=== PATIENT | female | born 1995 | race Caucasian/White ===

== ENCOUNTER 2022-01-12 17:43 | Outpatient (RCR) | payer OTHER, SELFPAY ==
[2022-01-12 18:45] VITALS: BP 106/68
== END 2022-03-10 10:05 | disposition home or self-care (01) ==
LOC: ANHOBOP 17:43
PROVIDERS: Visit Provider Student in an Organized Health Care Education/Training Program
DX: O36.8190 Decreased fetal movements, unspecified trimester, not applicable or unspecified (principal); Z3A.30 30 weeks gestation of pregnancy
CPT/HCPCS: 59025

== ENCOUNTER 2022-02-01 09:20 | Outpatient (CLI) | payer OTHER, SELFPAY ==
[2022-02-01 09:42] VITALS: BP 113/69; PULSE 106
[2022-02-01 09:45] VITALS: BP 122/74; PULSE 109
[2022-02-01 09:51] VITALS: BP 122/74; PULSE 109
[2022-02-01 10:01] VITALS: BP 107/74; PULSE 100
--- NOTE | 2022-02-01 10:14 | PC.NURSE ---
Called Dr. Washburn with Pt negative ROM plus results, reactive NST, and no contractions per patient/TOCO
--- NOTE | 2022-02-01 15:19 | PM.OBTRLD ---
OB - Triage/Final Diagnosis Visit Information Date of evaluation: 02/01/22 Reason for evaluation: threatened labor Comments/Additional reasons for admission: I have assessed the risk for this patient, Yumiko Romero, and determined that she would benefit from observation care. Evaluation Vital signs: Vital Signs - 24 hr 02/01/22 09:42 02/01/22 09:45 02/01/22 10:01 Pulse Rate 106 H 109 H 100 Blood Pressure 113/69 122/74 107/74 02/01/22 09:51 Pulse Rate 109 H Blood Pressure 122/74
== END 2022-02-01 10:20 | disposition home or self-care (01) ==
LOC: ANHOBOP 09:25 → ANHOBPP 09:25
PROVIDERS: Visit Provider Student in an Organized Health Care Education/Training Program
DX: O42.90 Premature rupture of membranes, unspecified as to length of time between rupture and onset of labor, unspecified weeks of gestation (principal); Z3A.00 Weeks of gestation of pregnancy not specified
CPT/HCPCS: 59025; 84112; 99199

== ENCOUNTER 2022-02-11 18:32 | Observation (INO) | payer OTHER, SELFPAY ==
[2022-02-11 19:04] VITALS: BP 119/66; PULSE 108
[2022-02-11 19:12] VITALS: BMI 24.5
[2022-02-11 19:12] LABS: Appearance Urine Cloudy (Clear); Bilirubin Urine 1+ (Negative); Blood Urine Negative (Negative); Color Urine Yellow (Yellow); Glucose Urine UA Negative (Negative); Ketones Urine Trace mg/dL (Negative); Leukocyte Esterase Ur 1+ LEU/UL (Negative); Nitrate Urine Negative (Negative); Protein Urine Negative (Negative)
--- NOTE | 2022-02-11 19:12 | OBADM ---
This patient, Yumiko Romero, admitted to the OB room OB Post 115 for observation. Patient/family oriented to hospital policies and general routines including ID bracelet, bed and alarms, visiting hours, pain management, procedures, bathroom and other care routines, personal items, smoking policy, room service/diet, and visiting hours. Patient/Family are encouraged to report perceived risks to care and to ask questions if they do not understand what they are told or what they should do.
[2022-02-11 19:23] LABS: Amorphous Sediment Urine Few; Mucus Urine Rare /lpf; RBC Urine 0-2 /hpf (0-2); Squamous Epithelial Cell Urine Many /hpf (Few); WBC Urine 0-3 /hpf
[2022-02-11 19:24] LABS: Add Urine Microscopic? YES
--- NOTE | 2022-03-03 14:48 | PM.OBTRLD ---
OB - Triage/Final Diagnosis Visit Information Comments/Additional reasons for admission: I have assessed the risk for this patient, Yumiko Romero, and determined that she would benefit from observation care. Evaluation Laboratory results: Laboratory Tests 02/11/22 18:57 Urine Color Yellow Urine Appearance Cloudy H Urine pH 7.0 Ur Specific [place] 1.020 Urine Protein Negative Urine Glucose (UA) Negative Urine Ketones Trace Ur Blood (Man) Negative Urine Nitrate Negative Urine Bilirubin 1+ H Urine Urobilinogen 1.0 Leukocyte Esterase Rfl 1+ H Urine RBC 0-2 Urine WBC 0-3 Ur Squamous Epith Cells Many H Amorphous Sediment Few H Urine Mucus Rare Final Diagnosis (1) False labor: Code(s): O47.9 - False labor, unspecified Status: Acute
== END 2022-02-11 20:06 | disposition home or self-care (01) ==
LOC: ANHOBPP 02-12 14:05
PROVIDERS: Admitting Provider Obstetrics & Gynecology; Visit Provider Obstetrics & Gynecology
DX: O47.9 False labor, unspecified (principal); Z3A.00 Weeks of gestation of pregnancy not specified
CPT/HCPCS: 81001; G0378; G0379

== ENCOUNTER 2022-02-25 07:54 | Inpatient (IN) | payer OTHER, SELFPAY ==
[2022-02-25] VITALS (17 sets, daily range): BP systolic 103–122; BP diastolic 54–108; PULSE 85–104; RESP 18; TEMP 36.7–37.1; O2SAT 98–99; BMI 25.4
[2022-02-25 08:55] LABS: Basophils Absolute Auto 0.1 K/mm3 (0.0-0.1); Basophils Percent Auto 0.7 % (0.2-1.2); Eosinophils Absolute Auto 0.2 K/mm3 (0-0.3); Eosinophils Percent Auto 1.3 % (0-4.4); Hematocrit 32.2 % (37.0-47.0); Hemoglobin 10.8 g/dL (12.0-15.0); Immature Granulocyte Absolute 0.22 K/mm3 (0.00-0.031); Immature Granulocyte Percent A 1.5 % (0-0.5); Lymphocytes Percent Auto 16.8 % (18.3-44.2); Mean Corpuscular HGB Conc 33.5 g/dl (32-36); Mean Corpuscular Hemoglobin 31.1 pg (26-34); Mean Corpuscular Volume 92.8 fl (80-100); Mean Platelet Volume 10.8 fl (7.4-10.4); Monocytes Absolute Auto 1.3 K/mm3 (0.1-0.6); Monocytes Percent Auto 8.8 % (2.6-8.5); Neutrophils Absolute Auto 10.6 K/mm3 (1.3-6.7); Neutrophils Percent Auto 70.9 % (45.5-73.1); Platelet Count Result 308 k/mm3 (150-375); Red Blood Count 3.47 M/mm3 (4.2-5.4); White Blood Count 14.9 K/mm3 (4.5-10.0)
--- NOTE | 2022-02-25 09:29 | LDADM ---
This patient, Yumiko Romero, was admitted to Labor/Delivery/Recovery 108 on 02/25/22 at 07:54. Plans for labor, pain management and were discussed with patient. Patient/family oriented to hospital policies and general routines including ID bracelet, bed and alarms, visiting hours, pain management, procedures, bathroom and other care routines, personal items, smoking policy, room service/diet and guest tray routines, security routines, and visiting hours. Patient/Family are encouraged to report perceived risks to care and to ask questions if they do not understand what they are told or what they should do. See OBIX for further documentation.
--- NOTE | 2022-02-25 10:55 | WPDANESEPP ---
Anes - Eval Pre Procedure Procedure: Labor epidural Date/Time: 02/25/22 10:55 Surgeon: Damon Valencia Preop Diagnosis: Labor Pain Pre Op Diagnosis: labor pain Patient Data Age: 26 Gender: F Height: 1.6 m Weight: 65 kg Last Vital Signs Pulse 92 02/25/22 10:19 BP 113/75 02/25/22 10:19 O2 Del Method Room Air 02/25/22 09:29 Allergies Allergy/AdvReac Type Severity Reaction Status Date / Time zolpidem [From Ambien] Allergy Difficulty Verified 02/25/22 09:41 Breathing Home Medications Medication Instructions Recorded Confirmed Type folic acid 1 mg tablet 1 mg PO DAILY 02/01/22 02/01/22 History vit#24-iron amino acid 1 tablet PO DAILY 02/01/22 02/01/22 History chelat-folic acid 30 mg-975 mcg tablet Laboratory Tests 02/25/22 02/25/22 02/25/22 08:43 08:43 08:43 WBC 14.9 K/mm3 H K/mm3 (4.5-10.0) RBC 3.47 M/mm3 L M/mm3 (4.2-5.4) Hgb 10.8 g/dL L g/dL (12.0-15.0) Hct 32.2 % L % (37.0-47.0) MCV 92.8 fl fl (80-100) MCH 31.1 pg pg (26-34) MCHC 33.5 g/dl g/dl (32-36) RDW 13.0 % % (11.5-14.5) Plt Count 308 k/mm3 k/mm3 (150-375) MPV 10.8 fl H fl (7.4-10.4) Immature Gran % (Auto) 1.5 % H % (0-0.5) Neut % (Auto) 70.9 % % (45.5-73.1) Lymph % (Auto) 16.8 % L % (18.3-44.2) [place] % (Auto) 8.8 % H % (2.6-8.5) Eos % (Auto) 1.3 % % (0-4.4) Baso % (Auto) 0.7 % % (0.2-1.2) Lymph # (Auto) 2.50 K/mm3 K/mm3 (0.9-3.2) [place] # (Auto) 1.3 K/mm3 H K/mm3 (0.1-0.6) Eos # (Auto) 0.2 K/mm3 K/mm3 (0-0.3) Baso # (Auto) 0.1 K/mm3 K/mm3 (0.0-0.1) Abs Immat Gran (auto) 0.22 K/mm3 H K/mm3 (0.00-0.031) Absolute Neuts (auto) 10.6 K/mm3 H K/mm3 (1.3-6.7) Absolute Nucleated RBC 0.0 K/mm3 K/mm3 (0.0-0.012) Nucleated RBC % 0.0 % % (0.0-0.2) RPR Pending Blood Type A Positive Antibody Screen Negative Patient hx anesthesia problems: none Family hx anesthesia problems: none Results Review: All pre-operative results and documents have been reviewed as part of the pre-operative evaluation. [facility] Social History Social History Smoking packs per day: 1 Smoking cigarettes per day: 20.0 Years smoked: 14 Smoking pack-years: 14.00 Smoking status: Current every day smoker Tobacco type: cigarettes Second hand tobacco smoke exposure: Yes Substance use: never Spiritual care concerns: No Exam Day of Procedure 02/25/22 10:55 Patient weight: normal Heart: regular rate and rhythm Lungs: clear to auscultation Airway: Mallampati scale class II Neurological: alert and oriented
--- NOTE | 2022-02-25 11:43 | P.HP_ITS ---
H&P: HPI History of Present Illness Date/Time: 02/25/22 11:43 Chief Complaint: Rupture membranes at term Narrative: 26-year-old 5 para 2 whose last menstrual is pulled away 921, EDC is 03/17/2022. Who was 1st seen by me at 30 weeks gestation presents at 37 weeks gestation with spontaneous rupture membranes prior to admission. She has a history of an ectopic and 2 miscarriages. In 2 early deliveries. She is negative for group B strep PMFSH Social History Social History Smoking packs per day: 1 Smoking cigarettes per day: 20.0 Years smoked: 14 Smoking pack-years: 14.00 Smoking status: Current every day smoker Tobacco type: cigarettes Second hand tobacco smoke exposure: Yes Substance use: never Spiritual care concerns: No Meds Home Medications and Allergies Home Medications Medication Instructions Recorded Confirmed Type folic acid 1 mg tablet 1 mg PO DAILY 02/01/22 02/01/22 History vit#24-iron amino acid 1 tablet PO DAILY 02/01/22 02/01/22 History chelat-folic acid 30 mg-975 mcg tablet Allergies Allergy/AdvReac Type Severity Reaction Status Date / Time zolpidem [From Ambien] Allergy Difficulty Verified 02/25/22 09:41 Breathing Vital Signs Vital Signs - 24 hr 02/25/22 10:19 02/25/22 09:29 Pulse Rate 92 Blood Pressure 113/75 Oxygen Delivery Room Air Exam Const: General: cooperative and healthy appearing Nutritional Appearance: average body habitus Orientation/consciousness: oriented to person, oriented to place and oriented to time Chest: Chest palpation & inspection: normal inspection of the chest Resp: Effort & Inspection: normal respiratory effort Cardio: Rate: regular rate Rhythm: regular rhythm Heart sounds: S1 normal heart sound present and S2 normal heart sound present GI: Inspection: normal to inspection : External Female Exam: normal external appearance Speculum Exam - Vagina: normal appearance of the vagina and other ( copious clear fluid present) Speculum Exam - Cervix: Cervical os closed ( cervix 4/80/1. FHTs were reass uring with regular contractions) H&P: Results Labs Labs: Short CBC 02/25/22 Range/Units 08:43 WBC 14.9 H (4.5-10.0) K/mm3 Hgb 10.8 L (12.0-15.0) g/dL Hct 32.2 L (37.0-47.0) % Plt Count 308 (150-375) k/mm3 Assessment and Plan Assessment and plan (1) Term : Code(s): Z34.90 - Encounter for supervision of normal , unspecified, unspecified trimester Status: Acute Plan spontaneous vaginal delivery is expected. She declines an epidural
[2022-02-25] MEDS: LACTATED RINGERS 1,000 ML 125 ML IV CONT (12:34)
[2022-02-25] MEDS: OXYTOCIN 30 UNITS/NS 500 ML 30 UNITS/500 ML BAG IV CONT (12:35)
--- NOTE | 2022-02-25 15:40 | PM.OBPRVD ---
OB - Delivery Note Procedure Delivery date: 02/25/22 Induction method: None Delivery augmentation: Pitocin Delivery monitor: External FHT Route of delivery: Episiotomy description: None Laceration Description: None Quantitative Blood Loss (ml): 59 Anesthesia type: None Disposition: Floor Baby Date of : 02/25/22 Time of : 15:32 Weeks of gestation at delivery: 37 Infant gender: Female presentation: vertex position: Right Occiput Anterior Placenta delivery description: Spontaneous Cord Vessel Description: 3 Vessels and Delayed Cord Clamping score one minute: 9 score five minutes: 9
[2022-02-25 15:56] LABS: Rapid Plasma Reagin Non-Reactive (NonReactive)
[2022-02-25] MEDS: OXYTOCIN 30 UNITS/NS 500 ML 30 UNITS/500 ML BAG 125 UNITS IV CONT (16:04)
[2022-02-25] MEDS: IBUPROFEN 600 MG TABLET PO (16:13)
[2022-02-25] MEDS: WITCH HAZEL 40 PADS 1 PAD TOPICAL (16:16)
[2022-02-25] MEDS: BENZOCAINE 20% AER SPR (*SP) 56 GM CAN 1 SPRAY TOPICAL (16:17)
--- NOTE | 2022-02-25 17:46 | PC.NURSE ---
Patient transferred to post room #281 via wheelchair. Support person present. Oriented to unit, room, information board, rooming in, admission packet and security measures. Patient verbalizes understanding.
[2022-02-26 00:34] VITALS: BP 110/68; PULSE 85; RESP 18; TEMP 36.3; O2SAT 99
[2022-02-26 04:40] VITALS: BP 103/63; PULSE 86; RESP 18; TEMP 36.8; O2SAT 99
[2022-02-26 05:07] LABS: Hematocrit 23.2 % (37.0-47.0); Hemoglobin 7.8 g/dL (12.0-15.0)
--- NOTE | 2022-02-26 06:58 | P.DS_ITS ---
DS: Admitting Diagnosis Discharge Date 02/26/2022 Admitting Diagnosis term DS: Discharge Diagnosis Discharge Diagnosis (1) Term : Code(s): Z34.90 - Encounter for supervision of normal , unspecified, unspecified trimester Status: Acute DS: Summary Hospital Course Reason for hospitalization: active labor at term Hospital Course: the patient was admitted in active labor at term. She underwent spontaneous vaginal delivery which was unremarkable. Her hospital course was unremarkable. She remained afebrile. She was , ambulating, voiding without difficulty, and general without complaints. Time Spent with Patient Time attestation: Total time spent providing and/or coordinating discharge services: DS: Data Data Completed and Pending Labs on day of discharge: Labs from last 24 hours 02/26/22 02/25/22 02/25/22 04:58 08:43 08:43 WBC RBC Hgb 7.8 L D Hct 23.2 L MCV MCH MCHC RDW Plt Count MPV Immature Gran % (Auto) Neut % (Auto) Lymph % (Auto) [place] % (Auto) Eos % (Auto) Baso % (Auto) Lymph # (Auto) [place] # (Auto) Eos # (Auto) Baso # (Auto) Abs Immat Gran (auto) Absolute Neuts (auto) Absolute Nucleated RBC Nucleated RBC % RPR Non-reactive Blood Type A Positive Antibody Screen Negative 02/25/22 08:43 WBC 14.9 H RBC 3.47 L Hgb 10.8 L Hct 32.2 L MCV 92.8 MCH 31.1 MCHC 33.5 RDW 13.0 Plt Count 308 MPV 10.8 H Immature Gran % (Auto) 1.5 H Neut % (Auto) 70.9 Lymph % (Auto) 16.8 L [place] % (Auto) 8.8 H Eos % (Auto) 1.3 Baso % (Auto) 0.7 Lymph # (Auto) 2.50 [place] # (Auto) 1.3 H Eos # (Auto) 0.2 Baso # (Auto) 0.1 Abs Immat Gran (auto) 0.22 H Absolute Neuts (auto) 10.6 H Absolute Nucleated RBC 0.0 Nucleated RBC % 0.0 RPR Blood Type Antibody Screen Discharge Plan Discharge Attending physician on discharge: Arash Escoto Discharging Clinician: Arash Escoto Patient Disposition: Home, Self-Care Activity: may shower, no straining and pelvic rest Diet: heart healthy Wound Care Instructions: follow printed instructions Patient Instructions: Antibiotic Form Stand Alone Forms: General Discharge Information Follow-up/Referrals: Arash Escoto MD [Physician] - Discharge Medications: Continued folic acid 1 mg tablet 1 mg PO DAILY PNV no.85-[id number] acid 30-975 mg-mcg Tablet 1 tablet PO DAILY Date of admission: 02/25/22 07:54 Primary Care Provider: PHYSICIAN,RECREATIONAL RESORT MANAGER Admitting Provider: Arash Escoto Attending physician on admission: Arash Escoto Condition: Stable
--- NOTE | 2022-02-26 07:01 | PM.OBPNVD ---
OB - PN: Subj Subjective Date/time seen: 02/26/22 07:01 Patient comments: no complaints and pain well controlled baby status: doing well and nursing well OB - PN: Obj Data Labs CBC & Chem 7: 02/26/22 04:58 Labs: Laboratory Results - last 24 hr 02/25/22 02/25/22 02/25/22 08:43 08:43 08:43 WBC 14.9 H RBC 3.47 L Hgb 10.8 L Hct 32.2 L MCV 92.8 MCH 31.1 MCHC 33.5 RDW 13.0 Plt Count 308 MPV 10.8 H Immature Gran % (Auto) 1.5 H Neut % (Auto) 70.9 Lymph % (Auto) 16.8 L [place] % (Auto) 8.8 H Eos % (Auto) 1.3 Baso % (Auto) 0.7 Lymph # (Auto) 2.50 [place] # (Auto) 1.3 H Eos # (Auto) 0.2 Baso # (Auto) 0.1 Abs Immat Gran (auto) 0.22 H Absolute Neuts (auto) 10.6 H Absolute Nucleated RBC 0.0 Nucleated RBC % 0.0 RPR Non-reactive Blood Type A Positive Antibody Screen Negative 02/26/22 04:58 WBC RBC Hgb 7.8 L D Hct 23.2 L MCV MCH MCHC RDW Plt Count MPV Immature Gran % (Auto) Neut % (Auto) Lymph % (Auto) [place] % (Auto) Eos % (Auto) Baso % (Auto) Lymph # (Auto) [place] # (Auto) Eos # (Auto) Baso # (Auto) Abs Immat Gran (auto) Absolute Neuts (auto) Absolute Nucleated RBC Nucleated RBC % RPR Blood Type Antibody Screen OB - PN A/P Assessment and Plan (1) Term : Code(s): Z34.90 - Encounter for supervision of normal , unspecified, unspecified trimester Status: Acute Plan day: 1 Plan: routine care, discharge home and follow up 6 weeks Time Spent With Patient Time: Total time spent is greater than 50% in coordination of care (as documented) at patient's floor/unit and/or counseling patient: Time with patient: less than 15 minutes
[2022-02-26 08:20] VITALS: BP 109/67; PULSE 87; RESP 16; TEMP 36.8; O2SAT 100
[2022-02-26] MEDS: POLYSACCHARIDE IRON COMPLEX 150 MG CAPSULE PO (09:31)
[2022-02-26] MEDS: IBUPROFEN 600 MG TABLET PO (09:31)
[2022-02-26] MEDS: DOCUSATE SODIUM 100 MG CAPSULE PO (09:31)
--- NOTE | 2022-02-26 10:07 | PC.NURSE ---
0952 Introductions were made, then consulted with patient to assess needs related to . Mother verbalizes she is able to independently latch with appropriate positioning/alignment. She denies any nipple discomfort and is responsively . is currently meeting outcomes for weight, output, jaundice and feeding frequencies of 8-12 times in 24 hours. Mother declines any additional assistance/education at this time. Mother is encouraged to call for assistance if her infant doesn?t latch or there is discomfort with latching. Resources provided for inpatient and outpatient services using a resource guide and mom/baby guide. Mother voiced understanding of information and will call if there is a request for assistance.
[2022-02-26 12:06] VITALS: BP 115/75; PULSE 88; RESP 16; TEMP 37.2; O2SAT 100
[2022-03-01 12:00] VITALS: BP 106/73; PULSE 83; RESP 20; TEMP 36.8; O2SAT 99
== END 2022-02-26 17:45 | disposition home or self-care (01) | DRG 807 ==
LOC: ANHLDR 10:58 → ANHOB2 17:59
PROVIDERS: Admitting Provider Obstetrics & Gynecology; Visit Provider Obstetrics & Gynecology
DX: O99.334 Smoking (tobacco) complicating childbirth (principal); Z37.0 Single live birth; F17.210 Nicotine dependence, cigarettes, uncomplicated; Z3A.37 37 weeks gestation of pregnancy
CPT/HCPCS: 36415; 85014; 85018; 85025; 86592; 86850; 86900; 86901; A9270; J2590; J7120

== ENCOUNTER 2022-08-19 12:35 | Emergency (ER) | payer OTHER, SELFPAY ==
[2022-08-19 13:20] VITALS: BP 121/81; PULSE 97; RESP 15; O2SAT 100
--- NOTE | 2022-08-19 15:02 | PC.NURSE ---
Patient up to triage desk to notify this RN that she no longer wanted to be seen. She stated I'm paying a manager labor relations and can't keep sitting here . Patient encouraged to stay but she declined. Encouraged to return to the ED with any worsening symptoms or other concerns.
== END 2022-08-19 16:24 | disposition left against medical advice (07) ==
DX: M54.2 Cervicalgia (principal)
CPT/HCPCS: 99199

== ENCOUNTER → 2022-10-29 11:23 | Outpatient (CLI) | payer OTHER, SELFPAY ==
--- NOTE | ~2022-10-29 | US_ITS ---
EXAMINATION: US breast RT limited HISTORY: Palpable lump in the lower-outer quadrant of the right breast TECHNIQUE: Limited right breast ultrasound is performed. FINDINGS: There is a 7 mm x 4 mm oval, circumscribed, parallel, hypoechoic mass with posterior acoust ic enhancement and no internal vascularity at the 4:00 location, 4 cm from the nipple in the right br east corresponding to the palpable abnormality of concern. IMPRESSION: Probably benign right breast mass corresponding to the palpable abnormality of concern. Continued cli nical follow-up and targeted right breast ultrasound in six months are recommended. BI-RADS category 3, probably benign findings. Reviewed, dictated and finalized at location A. IMPRESSION: Probably benign right breast mass corresponding to the palpable abnormality of concern. Continued clinical follow-up and targeted right breast ultrasound in s ix months are recommended. BI-RADS category 3, probably benign findings.
== END ==
PROVIDERS: PCP Obstetrics & Gynecology; Visit Provider Obstetrics & Gynecology
DX: N63.10 Unspecified lump in the right breast, unspecified quadrant (principal); R92.8 Other abnormal and inconclusive findings on diagnostic imaging of breast
CPT/HCPCS: 76642